=== PATIENT | male | born 1940 | race Caucasian/White ===

== ENCOUNTER 2016-09-21 09:52 | Emergency (ER) | payer OTHER ==
[~2016-09-21] VITALS: Ht 190.5 cm; Wt 92.4 kg
[~2016-09-21 09:52] MED LIST: 8 HOUR PAIN RE650 M1 PO; ANORO ELLIPTA1 EACH IH; B COMPLETE1 EACH PO; CALTRATE PLUS1 EACH PO; CENTRUM SILVER1 EAC3 PO; FISH OIL 1,0001 EAC7 PO; GLUCOPHAGE1000 MG PO; IBUPROFEN400 MG PO; TAMSULOSIN HCL0.4 MG PO; TESSALON PERLE100 MG PO; TUMS500 MG PO; VITAMIN C500 M1 PO; VITAMIN D-32000 UNI1 PO
[2016-09-21 09:54] VITALS: BP 149/93
[2016-09-21] MEDS ORDERED: KEFLEX500 MG PO (12:48)
== END 2016-09-21 13:09 | disposition home or self-care (01) ==
LOC: EME 09:52
DX: S60.551A Superficial foreign body of right hand, initial encounter (principal); Z23 Encounter for immunization; W45.8XXA Other foreign body or object entering through skin, initial encounter
CPT/HCPCS: 73130; 99281; 99283